=== PATIENT | male | born 1990 | race Caucasian/White ===

== ENCOUNTER 2017-11-05 15:10 | Emergency (ER) | payer OTHER ==
[~2017-11-05] VITALS: Ht 167.6 cm; Wt 85.3 kg
[2017-11-05 15:21] VITALS: Ht 167.6 cm; Wt 85.3 kg
[2017-11-05 16:26] VITALS: BP 146/94
== END 2017-11-05 16:20 | disposition home or self-care (01) ==
LOC: ED 15:10
DX: S05.02XA Injury of conjunctiva and corneal abrasion without foreign body, left eye, initial encounter (principal); X58.XXXA Exposure to other specified factors, initial encounter; Y93.89 Activity, other specified; Y92.89 Other specified places as the place of occurrence of the external cause; Y99.8 Other external cause status

== ENCOUNTER 2017-11-08 13:20 | Emergency (ER) | payer OTHER ==
[~2017-11-08] VITALS: Ht 177.8 cm; Wt 85.0 kg
[2017-11-08 13:27] VITALS: BP 120/70; Ht 177.8 cm; Wt 85.0 kg
== END 2017-11-08 16:06 | disposition home or self-care (01) ==
LOC: ED 13:20
DX: H57.8 Other specified disorders of eye and adnexa (principal); T78.49XA Other allergy, initial encounter; X58.XXXA Exposure to other specified factors, initial encounter

== ENCOUNTER 2017-11-10 08:14 | Emergency (ER) | payer OTHER ==
[~2017-11-10] VITALS: Ht 162.6 cm; Wt 79.4 kg
[2017-11-10 08:17] VITALS: Ht 162.6 cm; Wt 79.4 kg
[2017-11-10 08:58] VITALS: BP 110/87
== END 2017-11-10 08:58 | disposition home or self-care (01) ==
LOC: ED 08:14
DX: S05.02XD Injury of conjunctiva and corneal abrasion without foreign body, left eye, subsequent encounter (principal); X58.XXXD Exposure to other specified factors, subsequent encounter; Z20.828 Contact with and (suspected) exposure to other viral communicable diseases
CPT/HCPCS: 90715